=== PATIENT | female | born 1975 | race Caucasian/White ===

== ENCOUNTER 2023-11-09 09:36 | Outpatient (CLI) | payer OTHER ==
[2023-11-09 10:40] LABS: URINE APPEARANCE Clear; URINE BILIRRUBIN Negative (NEGATIVE); URINE BLOOD Trace; URINE COLOR Yellow; URINE GLUCOSE Negative (NEGATIVE); URINE LEUKOCYTE Negative; URINE NITRATE Negative; URINE PROTEIN Negative (NEGATIVE); URINE UROBILINOGEN 0.2 E.U./dl
[2023-11-09 10:46] LABS: URINE BACTERIA 216.5 uL (0.0-1933); URINE EPITHELIAL CELLS 2.4 uL (0.0-38.8); URINE WBC 4.1 uL (0.0-23.2)
[2023-11-09 11:07] LABS: ALBUMIN 3.9 gm/dL (3.4-5.0); BILIRUBIN TOTAL 0.59 mg/dL (0.3-1.2); CALCIUM 9.7 mg/dL (8.5-10.1); CREATININE SERUM 0.79 mg/dL (0.55-1.02); GFR 77.03; POTASSIUM 4.06 mEq/L (3.5-5.1); TOTAL PROTEIN 7.9 gm/dL (6.4-8.2)
== END 2023-11-09 10:05 | disposition home or self-care (01) ==
LOC: LAB 09:36
PROVIDERS: ATTEND Obstetrics & Gynecology
DX: A53.0 Latent syphilis, unspecified as early or late (principal); B20 Human immunodeficiency virus [HIV] disease; E55.9 Vitamin D deficiency, unspecified; N39.0 Urinary tract infection, site not specified; E03.9 Hypothyroidism, unspecified

== ENCOUNTER 2024-03-25 07:16 | Outpatient (CLI) | payer OTHER | END 2024-03-25 07:31 | disposition home or self-care (01) | LOC: MAMO-SONO 07:16 | PROVIDERS: ATTEND Obstetrics & Gynecology | DX: N63.12 Unspecified lump in the right breast, upper inner quadrant (principal); N63.21 Unspecified lump in the left breast, upper outer quadrant ==

== ENCOUNTER 2024-12-24 13:06 | Outpatient (CLI) | payer OTHER | END 2024-12-24 13:10 | disposition home or self-care (01) | LOC: SONOGRAMA 13:06 | PROVIDERS: ATTEND Obstetrics & Gynecology | DX: D25.1 Intramural leiomyoma of uterus (principal) ==

== ENCOUNTER → 2025-01-02 08:15 | Outpatient (CLI) | payer OTHER ==
[2025-01-02 09:42] LABS: HEMATOCRIT 40.6 % (36.0-45.00); HEMOGLOBIN 13.8 g/dL (12.0-15.00); MEAN CELL VOLUME 77.8 fL (80.00-100.00); MEAN CORPUSCULAR HEMOGLOBIN 26.4 pg (27.00-32.0); PLATELET COUNT 251 K/uL (150-450); RED BLOOD COUNT 5.22 M/uL (4.00-6.00); RED CELL DISTRIBUTION WIDTH 14.1 % (11.5-14.5)
[2025-01-02 10:28] LABS: ALBUMIN 3.6 gm/dL (3.4-5.0); BILIRUBIN TOTAL 0.58 mg/dL (0.3-1.2); CALCIUM 9.5 mg/dL (8.5-10.1); CHOL HDL RATIO 2.8 (0-5.0); CREATININE SERUM 0.78 mg/dL (0.55-1.02); FREE TRIODOTIRONINE 3.65 pg/ml (2.18-3.98); GFR 77.86; GLOBULINA 3.9 G/DL (2.4-3.5); POTASSIUM 4.23 mEq/L (3.5-5.1); TOTAL PROTEIN 7.5 gm/dL (6.4-8.2); TSH 2.43 uIU/mL (0.358-3.74)
[2025-01-02 12:02] LABS: VITAMIN D3 25 HYDROXY 40.35 ng/ml (30-120)
[2025-01-03 09:15] LABS: ESTRADIOL SERUM < 5.0 pg/mL (.); FOLLICLE STIMULATING HORMONE 98.8 mIU/mL (.); LEUTEINIZING HORMONE 56.2 mIU/mL (.); TESTOSTERONE,TOTAL < 3.00 ng/dL (4-50)
== END | disposition home or self-care (01) ==
LOC: LAB 08:15
PROVIDERS: ATTEND Obstetrics & Gynecology
DX: N95.1 Menopausal and female climacteric states (principal); N93.1 Pre-pubertal vaginal bleeding; E03.8 Other specified hypothyroidism; I10 Essential (primary) hypertension; D50.8 Other iron deficiency anemias; E55.9 Vitamin D deficiency, unspecified

== ENCOUNTER 2025-04-23 07:06 | Outpatient (CLI) | payer OTHER | END 2025-04-23 07:08 | disposition home or self-care (01) | LOC: MAMO-SONO 07:06 | PROVIDERS: ATTEND Obstetrics & Gynecology | DX: N64.4 Mastodynia (principal) ==

== ENCOUNTER 2025-04-23 08:46 | Outpatient (CLI) | payer OTHER ==
[2025-04-23 09:49] LABS: URINE APPEARANCE Clear; URINE BILIRRUBIN Negative (NEGATIVE); URINE BLOOD Small; URINE COLOR Yellow; URINE GLUCOSE Negative (NEGATIVE); URINE KETONE Negative (NEGATIVE); URINE LEUKOCYTE Trace; URINE NITRATE Positive; URINE PROTEIN Negative (NEGATIVE); URINE UROBILINOGEN 0.2 E.U./dl
[2025-04-23 09:53] LABS: URINE EPITHELIAL CELLS 12.2 uL (0.0-38.8); URINE RBC 49.1 uL (0.0-20.8); URINE WBC 39.3 uL (0.0-23.2)
[2025-04-23 09:58] LABS: BASO % 1.2 % (0.1-1.2); EOS # 0.15 (0.04-0.54); EOS % 2.7 % (0.7-7.0); LYMPH # 1.81 (1.18-3.74); LYMPH % 32.1 % (19.3-53.1); MEAN PLATELET VOLUME 9.40 fl (9.4-12.4); MONO # 0.46 (0.24-0.82); MONO % 8.2 % (4.7-12.5); NEUT # 3.13 (1.56-6.13); NEUT % 55.6 % (34.0-71.1); RED CELL DISTRIBUTION WIDTH 13.7 % (11.6-14.4)
[2025-04-23 10:29] LABS: URINE BACTERIA > 9821.5 uL (0.0-1933); URINE CAST 0.00 uL (0.0-1.40)
[2025-04-23 10:53] LABS: CHOL HDL RATIO 2.6 (0-5.0); HDL 84.0 mg/dl (40-60); LDL 119.0 mg/dl (0-130); VLDL 17.0 (0-39)
[2025-04-23 13:54] LABS: VITAMIN D3 25 HYDROXY 40.87 ng/ml (30-120)
== END 2025-04-23 08:48 | disposition home or self-care (01) ==
LOC: LAB 08:46
DX: Z00.01 Encounter for general adult medical examination with abnormal findings (principal); E78.00 Pure hypercholesterolemia, unspecified; E55.9 Vitamin D deficiency, unspecified; D51.9 Vitamin B12 deficiency anemia, unspecified

== ENCOUNTER → 2025-05-29 06:34 | Outpatient (CLI) | payer OTHER | END | disposition home or self-care (01) | LOC: LAB 06:34 | DX: N39.0 Urinary tract infection, site not specified (principal) ==

== ENCOUNTER 2025-06-09 07:16 | Outpatient (CLI) | payer OTHER | END 2025-06-09 07:18 | disposition home or self-care (01) | LOC: SONOGRAMA 07:16 | DX: M25.511 Pain in right shoulder (principal) ==